=== PATIENT | male | born 1990 | race African-American/Black ===

== ENCOUNTER 2018-12-31 04:12 | Emergency (ER) | payer SELFPAY ==
[2018-12-31 04:49] LABS: Absolute Lymphocytes (CBC) 3.3 K/uL (0.7-4.9); Absolute Monocytes 0.6 K/uL (0.1-1.3); Absolute Neutrophil 5.4 K/uL (1.8-8.0); Basophils % 0.5 % (0-1.3); Eosinophils % 0.5 % (0-4.4); Hematocrit 41.2 % (39.6-49.0); Lymphocytes % 35.6 % (15.3-44.8); MPV 9.3 fL (7.6-11.3); RBC Red Blood Cell Count 4.89 M/uL (4.33-5.43)
[2018-12-31 04:53] LABS: Protime INR 1.13
[2018-12-31 04:58] LABS: Barbiturates NEGATIVE (NEGATIVE); Benzodiazepines NEGATIVE (NEGATIVE); Cocaine NEGATIVE (NEGATIVE); METHAMPHETAM NEGATIVE (NEGATIVE); Methadone NEGATIVE (NEGATIVE); Opiates NEGATIVE (NEGATIVE); Phencyclidine NEGATIVE (NEGATIVE); THC Cannibis NEGATIVE (NEGATIVE)
[2018-12-31 05:27] LABS: ALT/SGPT 19 U/L (12-78); AST/SGOT 16 U/L (15-37); Albumin 3.9 g/dL (3.4-5.0); Alkaline Phosphatase 69 U/L (45-117); BUN Blood Urea Nitrogen 9 mg/dL (7-18); Bicarbonate 26 mmol/L (21-32); Bilirubin Direct < 0.1 mg/dL (0-0.2); Bilirubin Total 0.2 mg/dL (0.2-1.0); Glucose Level 106 mg/dL (74-106); Potassium 3.6 mmol/L (3.5-5.1); Protein, Total 7.3 g/dL (6.4-8.2); Sodium Level 143 mmol/L (136-145)
[2018-12-31 06:00] LABS: Urine Blood 2+ (NEG); Urine Glucose NEGATIVE (NEG); Urine Protein 1+ (NEG); Urine Specific Gravity 1.025 (1.005-1.030)
--- NOTE | 2018-12-31 08:00 | EDPHYS ---
Physician Documentation [facility] Name: Jamsion Cardozo Age: 28 yrs Sex: Male : 1990 Arrival Date: 12/31/2018 Time: 04:18 Bed 3 Private MD: ED Physician Yang Carey HPI: 12/31 04:25 This 28 yrs old Black Male presents to ER via EMS with complaints of ETOH Abuse. kdr 04:25 The patient was out drinking tonight and a short time ago, his girl friend was called [facility] to come pick him up. He was poorly responsive at that time and vomiting one or more times. He then passed out completely and she called EMS. The patient normally drinks on weekends but not to this extent. The girl friend does not think he was taking any other street drugs. Onset: The symptoms/episode began/occurred just prior to arrival, today. Severity of symptoms: At their worst the symptoms were moderate severe incapacitating just prior to arrival, in the emergency department the symptoms are unchanged. The patient has not experienced similar symptoms in the past. The patient has not recently seen a physician. Historical: - Allergies: 04:25 No Known Allergies; fc - Home Meds: 04:25 None [Active]; fc - PMHx: 04:25 None; fc - PSHx: 04:25 None; fc - Immunization history:: Last tetanus immunization: unknown. - Social history:: Smoking status: Patient uses tobacco products, smokes one pack cigarettes per day. Patient uses alcohol, on the weekends. - Ebola Screening: : Patient negative for fever greater than or equal to 101.5 degrees Fahrenheit, and additional compatible Ebola Virus Disease symptoms Patient denies exposure to infectious person Patient denies travel to an Ebola-affected area in the 21 days before illness onset. ROS: 04:25 Constitutional: Unable to obtain as patient is unresponsive kdr Exam: 04:25 Constitutional: This is a well developed, well nourished patient who is obtunded and kdr poorly responsive to pain Head/Face: Normocephalic, atraumatic. Eyes: Pupils equal round and reactive to light, extra-ocular motions intact. Lids and lashes normal. Conjunctiva and sclera are non-icteric and not injected. Cornea within normal limits. Periorbital areas with no swelling, redness, or edema. Neck: Trachea midline, no thyromegaly or masses palpated, and no cervical lymphadenopathy. Supple, full range of motion without nuchal rigidity, or vertebral point tenderness. No Meningismus. Chest/axilla: Normal chest wall appearance and motion. Nontender with no deformity. No lesions are appreciated. Cardiovascular: Regular rate and rhythm with a normal S1 and S2. No gallops, murmurs, or rubs. Normal PMI, no JVD. No pulse deficits. Respiratory: Lungs have equal breath sounds bilaterally, clear to auscultation and percussion. No rales, rhonchi or wheezes noted. No increased work of breathing, no retractions or nasal flaring. Abdomen/GI: Soft, non-tender, with normal bowel sounds. No distension or tympany. No guarding or rebound. No evidence of tenderness throughout. Back: No spinal tenderness. No costovertebral tenderness. Full range of motion. Skin: Warm, dry with normal turgor. Normal color with no rashes, no lesions, and no evidence of cellulitis. MS/ Extremity: Pulses equal, no cyanosis. Neurovascular intact. Full, normal range of motion. 04:25 Neuro: Unresponsive. Vital Signs: 04:10 BP 130 / 86; Pulse 75; Resp 14; Temp 96.7(A); Pulse Ox 100% on R/A; Weight 90.72 kg fc (R); Height 5 ft. 11 in. (180.34 cm) (R); Pain 0/10; 05:30 BP 117 / 64; Pulse 73; Resp 14; Temp 97.0(A); Pulse Ox 98% on R/A; Pain 0/10; aa1 06:39 BP 93 / 58; Pulse 76; Resp 14; Pulse Ox 99% on R/A; Pain 0/10; aa1 07:04 BP 107 / 66; Pulse 74; Resp 14; Pulse Ox 100% on R/A; Pain 0/10; aa1 07:51 BP 107 / 59; Pulse 74; Resp 18; Pulse Ox 100% on R/A; hj 04:10 Body Mass Index 27.89 (90.72 kg, 180.34 cm) MDM: 04:25 Data reviewed: vital signs, nurses notes, lab test result(s), radiologic studies. ED kdr course: The patient had received Thiamine and Zofran [place] by EMS. 07:36 Patient medically screened. [facility] 12/31 04:20 Order name: Acetaminophen; Complete Time: 06:11 kdr 12/31 04:20 Order name: Basic Metabolic Panel; Complete Time: 06:11 kdr 12/31 04:20 Order name: CBC with Diff; Complete Time: 05:04 kdr 12/31 04:20 Order name: ETOH Level; Complete Time: 05:23 [facility] 12/31 04:20 Order name: Hepatic Function; Complete Time: 06:11 kdr 12/31 04:20 Order name: PT-INR; Complete Time: 05:23 kdr 12/31 04:20 Order name: Ptt, Activated; Complete Time: 05: kdr 12/31 04:20 Order name: Salicylate; Complete Time: : kdr 12/31 04:20 Order name: Urine Drug Screen; Complete Time: 05:04 kdr 12/31 04:20 Order name: EKG; Complete Time: 04:21 kdr 12/31 04:20 Order name: EKG - Nurse/Tech; Complete Time: 05:48 [facility] 12/31 04:20 Order name: CT Head Brain wo Cont [facility] 12/31 04:42 Order name: Urine Dipstick--Ancillary (enter results); Complete Time: 06:11 cm6 12/31 06:21 Order name: ETOH Level [facility] 12/31 04:20 Order name: IV Saline Lock; Complete Time: 04:24 kdr 12/31 04:20 Order name: Labs collected and sent; Complete Time: 04:24 [facility] 12/31 04:20 Order name: Urine Dipstick-Ancillary (obtain specimen); Complete Time: 04:35 kdr Administered Medications: No medications were administered Disposition: 12/31/18 07:59 Discharged to Home. Impression: Alcohol abuse with intoxication. - Condition is Stable. - Discharge Instructions: Alcohol Intoxication, Alcohol Intoxication, [id number], Alcohol Abuse and Nutrition, What You Need to Know About Alcohol Abuse and Dependence, Youth. - Medication Reconciliation Form, Thank You Letter, Antibiotic Education, Prescription Opioid Use form. - Follow up: Private Physician; When: 2 - 3 days; Reason: Recheck today's complaints, Continuance of care, Re-evaluation by your physician. - Problem is new. - Symptoms have improved. Signatures: Dispatcher [employer] EDYang Pastor MD MD cha Rittger, Ronald, MD MD kdr Chretien, Shauna, RN RN Shin Kimball RN RN Corrections: (The following items were deleted from the chart) 08:19 07:59 12/31/2018 07:59 Discharged to Home. Impression: Alcohol abuse with intoxication. hj Condition is Stable. Forms are Medication Reconciliation Form, Thank You Letter, Antibiotic Education, Prescription Opioid Use. Follow up: Private Physician; When: 2 - 3 days; Reason: Recheck today's complaints, Continuance of care, Re-evaluation by your physician. Problem is new. Symptoms have improved. ceci
--- NOTE | 2018-12-31 08:00 | ER ---
Nurse's Notes [facility] Name: Jamison Cardozo Age: 28 yrs Sex: Male : 1990 Arrival Date: 12/31/2018 Time: 04:18 Bed 3 Private MD: Diagnosis: Alcohol abuse with intoxication Presentation: 12/31 04:10 Presenting complaint: EMS states: that pt went out drinking with family and they called fc girlfriend to pick him up. She had to help him up the stairs. Pt then passed out. Did vomit a small amt. Pt then became unresponsive so she called 911. 04:21 Transition of care: patient was not received from another setting of care. Onset of fc symptoms was December 31, 2018 at 03:30. Risk Assessment: Do you want to hurt yourself or someone else? Patient reports no desire to harm self or others. Initial Sepsis Screen: Does the patient meet any 2 criteria? No. Patient's initial sepsis screen is negative. Does the patient have a suspected source of infection? No. Patient's initial sepsis screen is negative. Care prior to arrival: Medication(s) given: Normal saline infusion, 500 mL, zofran 4 mg, Thiamine 200 mg. 04:21 Method Of Arrival: EMS: [facility] 04:21 Acuity: MARNI 2 fc Historical: - Allergies: 04:25 No Known Allergies; fc - Home Meds: 04:25 None [Active]; fc - PMHx: 04:25 None; fc - PSHx: 04:25 None; fc - Immunization history:: Last tetanus immunization: unknown. - Social history:: Smoking status: Patient uses tobacco products, smokes one pack cigarettes per day. Patient uses alcohol, on the weekends. - Ebola Screening: : Patient negative for fever greater than or equal to 101.5 degrees Fahrenheit, and additional compatible Ebola Virus Disease symptoms Patient denies exposure to infectious person Patient denies travel to an Ebola-affected area in the 21 days before illness onset. Screenin:19 Abuse screen: Denies threats or abuse. Denies injuries from another. Nutritional aa1 screening: No deficits noted. Tuberculosis screening: No symptoms or risk factors identified. Fall Risk None identified. Assessment: 04:19 General: Appears in no apparent distress. comfortable, Behavior is drowsy, Smells of aa1 alcohol. Pain: Unable to use pain scale. FLACC scale score is 0 out of 10. Patient is unresponsive. Neuro: Level of Consciousness is obtunded, will briefly open eyes and move extremities then goes back to sleep. Cardiovascular: Heart tones S1 S2 present Rhythm is regular. Respiratory: Airway is patent Respiratory effort is even, unlabored, Respiratory pattern is regular, symmetrical. GI: No signs and/or symptoms were reported involving the gastrointestinal system. : No signs and/or symptoms were reported regarding the genitourinary system. EENT: No signs and/or symptoms were reported regarding the EENT system. Derm: Skin is intact, is healthy with good turgor, Skin is pink, warm \T\ dry. Musculoskeletal: Circulation, motion, and sensation intact. Capillary refill < 3 seconds. 05:46 Reassessment: Patient appears in no apparent distress at this time. No changes from aa1 previously documented assessment. Patient and/or family updated on plan of care and expected duration. Pain level reassessed. Pt still resting quietly, eyes closed. Significant other at bedside. Awaiting CT results. Will continue to monitor. 06:39 Reassessment: Patient appears in no apparent distress at this time. No changes from aa1 previously documented assessment. Patient and/or family updated on plan of care and expected duration. Pain level reassessed. Still monitoring pt for appropriateness for discharge. 07:00 General: Appears in no apparent distress. comfortable, Behavior is drowsy, quiet, hj Smells of alcohol. Pain: Unable to use pain scale. FLACC scale score is 2 out of 10. Neuro: Level of Consciousness is lethargic. Cardiovascular: Heart tones S1 S2 present Rhythm is regular. Respiratory: Airway is patent Respiratory effort is even, unlabored, Respiratory pattern is regular, symmetrical. GI: No signs and/or symptoms were reported involving the gastrointestinal system. : No signs and/or symptoms were reported regarding the genitourinary system. EENT: No signs and/or symptoms were reported regarding the EENT system. Derm: Skin is intact, is healthy with good turgor, Skin is pink, warm \T\ dry. Musculoskeletal: Circulation, motion, and sensation intact. Capillary refill < 3 seconds. 07:51 Reassessment: No changes from previously documented assessment. Patient and/or family hj updated on plan of care and expected duration. Pain level reassessed. GF at bedside. Vital Signs: 04:10 BP 130 / 86; Pulse 75; Resp 14; Temp 96.7(A); Pulse Ox 100% on R/A; Weight 90.72 kg fc (R); Height 5 ft. 11 in. (180.34 cm) (R); Pain 0/10; 05:30 BP 117 / 64; Pulse 73; Resp 14; Temp 97.0(A); Pulse Ox 98% on R/A; Pain 0/10; aa1 06:39 BP 93 / 58; Pulse 76; Resp 14; Pulse Ox 99% on R/A; Pain 0/10; aa1 07:04 BP 107 / 66; Pulse 74; Resp 14; Pulse Ox 100% on R/A; Pain 0/10; aa1 07:51 BP 107 / 59; Pulse 74; Resp 18; Pulse Ox 100% on R/A; hj 04:10 Body Mass Index 27.89 (90.72 kg, 180.34 cm) ED Course: 04:10 Arm band placed on Patient placed in an exam room, on a stretcher. fc 04:18 Patient arrived in ED. aa1 04:19 Ronald Cam MD is Attending Physician. kdr 04:19 Patient has correct armband on for positive identification. Placed in gown. Bed in low aa1 position. Side rails up X2. lunchroom monitor on. Pulse ox on. NIBP on. Warm blanket given. 04:19 Maintain EMS IV. Dressing intact. Good blood return noted. Site clean \T\ dry. Gauge \T\ aa 1 site: 18g LAC. 04:24 Triage completed. fc 04:24 Maddi Casiano, RN is Primary Nurse. aa1 04:36 Straight cath inserted, using sterile technique, 16 Fr. Specimen obtained. Returned ed1 clear yellow urine. Patient tolerated well. 05:08 CT Head Brain wo Cont In Process Unspecified. EDMS 07:00 Report given to Shin Kimball RN. aa1 07:18 Shin Kimball, NAYA is Primary Nurse. hj 07:36 Attending Physician role handed off by Ronald Cam MD ceci 07:36 Yang Carey MD is Attending Physician. ceci 08:16 No provider procedures requiring assistance completed. IV discontinued, intact, hj bleeding controlled, No redness/swelling at site. Pressure dressing applied. Administered Medications: No medications were administered Outcome: 07:59 Discharge ordered by . ceci 08:18 Discharged to home ambulatory, with family. deandre 08:18 Condition: stable 08:18 Discharge instructions given to patient, family, Instructed on discharge instructions, follow up and referral plans. Demonstrated understanding of instructions, follow-up care. 08:19 Patient left the ED. deandre Signatures: Dispatcher [employer] EDMaddi Dunn RN RN aa1 Yang Carey MD MD cha Rittger, Kevin, MD MD kdr Chretien, Felicia RN RN Luzma Batres RN RN ed1 Shin Kimball RN RN Corrections: (The following items were deleted from the chart) 04:24 04:21 Presenting complaint: EMS states: that pt went out drinking with family and they fc called girlfriend to pick him up. She had to help him up the stairs. Pt then passed out. Did vomit a small amt. Pt then became unresponsive so she called 911. fc
--- NOTE | 2018-12-31 08:46 | EKG ---
Test Date: 2018-12-31 Test Time: 05:19:40 Gis Manager: CHARITO MEASUREMENT RESULTS: Intervals: Rate: 74 FL: 188 QRSD: 92 QT: 392 QTc: 435 [place]: P: 87 FL: 188 QRS: 87 T: 51 INTERPRETIVE STATEMENTS: Normal sinus rhythm Possible Left atrial enlargement early repol Abnormal ECG No previous ECG available for comparison Electronically Signed On 12-31-18 08:45:54 CDT by Eugene Garcia
--- NOTE | 2019-01-01 10:08 | RAD REPORT ---
EXAM DESCRIPTION: CT - Head Brain Wo Cont - 12/31/2018 5:22 am CLINICAL HISTORY: The patient is 28 years old and is Male; AMS;Declining state TECHNIQUE: Axial computed tomography images of the head/brain without intravenous contrast. Sagitt al and coronal reformatted images were created and reviewed. This CT exam was performed using one o r more of the following dose reduction techniques: automated exposure control, adjustment of the mA and/or kV according to patient size, and/or use of iterative reconstruction technique. COMPARISON: No relevant prior studies available. FINDINGS: BRAIN: Unremarkable. The suazo-white matter differentiation is preserved . No hemorrhag e. No significant white matter disease. No edema. No extra-axial fluid collections. VENTRICLES: Unremarkable. No ventriculomegaly. BONES/JOINTS: No acute fracture. SOFT TISSUES: Unremarkable. SINUSES: Unremarkable as visualized. No acute sinusitis. MASTOID AIR CELLS: Unremarkable as visualized. No mastoid effusion. IMPRESSION: No acute intracranial findings. Electronically signed by: Manisha Singh MD 12/31/2018 5:17 AM CDT Due to temporary technical issues with the PACS/Fluency reporting system, reports are being signed by the in house radiologist as a courtesy to ensure prompt reporting. The interpreting radiologist is f ully responsible for the content of the report.
== END 2018-12-31 08:19 | disposition home or self-care (01) ==
LOC: ER 04:12
DX: F10.129 Alcohol abuse with intoxication, unspecified (principal); F17.210 Nicotine dependence, cigarettes, uncomplicated
CPT/HCPCS: 36415; 51702; 70450; 80048; 80076; 80307; 80320; 80329; 81003; 85025; 85610; 85730; 93005; 99284

== ENCOUNTER 2019-02-14 06:55 | Emergency (ER) | payer SELFPAY ==
[2019-02-14] MEDS ORDERED: KETOROLAC 30 MG/ML INJ ONE (08:11)
[2019-02-14] MEDS ORDERED: NA CHLORIDE 0.9% 500 ML ONE (08:11)
[2019-02-14 08:20] LABS: Absolute Lymphocytes (CBC) 2.7 K/uL (0.7-4.9); Basophils % 0.5 % (0-1.3); Eosinophils % 1.1 % (0-4.4); Hematocrit 41.1 % (39.6-49.0); Monocytes % 8.2 % (3.3-12.3); RBC Red Blood Cell Count 4.89 M/uL (4.33-5.43)
[2019-02-14 08:29] LABS: Potassium 3.9 mmol/L (3.5-5.1)
--- NOTE | 2019-02-14 09:26 | RAD REPORT ---
EXAM DESCRIPTION: CTAbdomen Pelvis W Contrast - 02/14/2019 9:07 am CLINICAL HISTORY: Abdominal pain. Rectal pain COMPARISON: No comparisons TECHNIQUE: Biphasic CT imaging of the abdomen and pelvis was performed with 100 ml non-ionic IV cont rast. All CT scans are performed using dose optimization technique as appropriate and may include automated exposure control or mA/KV adjustment according to patient size. FINDINGS: The lung bases are clear. The liver, spleen, pancreas, adrenal glands and kidneys are within normal limits. No bowel obstruction, free air, free fluid or abscess. The appendix is normal. No evidence of signi ficant lymphadenopathy. No suspicious bony findings. IMPRESSION: No acute intra-abdominal or pelvic finding.
--- NOTE | 2019-02-14 09:50 | ER ---
Nurse's Notes [facility] Name: Jamison Cardozo Age: 28 yrs Sex: Male : 1990 Arrival Date: 02/14/2019 Time: 07:01 Bed 5 Private MD: Diagnosis: Ivelisse-rectal abscess - I\T\D Presentation: 02/14 07:10 Presenting complaint: Patient states: I think I have a spider bite on my buttock area. ed1 Transition of care: patient was not received from another setting of care. Onset of symptoms was February 13, 2019. Risk Assessment: Do you want to hurt yourself or someone else? Patient reports no desire to harm self or others. Initial Sepsis Screen: Does the patient meet any 2 criteria? No. Patient's initial sepsis screen is negative. Does the patient have a suspected source of infection? No. Patient's initial sepsis screen is negative. Care prior to arrival: None. 07:10 Method Of Arrival: Ambulatory ed1 07:10 Acuity: MARNI 3 ed1 Triage Assessment: 07:11 Bite description: bite sustained to buttocks by a spider, animal information: ed1 vaccination(s) is not applicable. General: Appears in no apparent distress. Behavior is calm, cooperative. Pain: Complains of pain in buttocks Pain currently is 8 out of 10 on a pain scale. Historical: - Allergies: 07:11 No Known Allergies; ed1 - Home Meds: 07:11 None [Active]; ed1 - PMHx: 07:11 None; ed1 - PSHx: 07:11 None; ed1 - Immunization history:: Adult Immunizations up to date. - Social history:: Smoking status: Patient uses tobacco products, denies chronic smoking, but will smoke occasionally. - Ebola Screening: : Patient negative for fever greater than or equal to 101.5 degrees Fahrenheit, and additional compatible Ebola Virus Disease symptoms Patient denies exposure to infectious person Patient denies travel to an Ebola-affected area in the 21 days before illness onset No symptoms or risks identified at this time. Screenin:21 Abuse screen: Denies threats or abuse. Nutritional screening: No deficits noted. tr5 Tuberculosis screening: No symptoms or risk factors identified. Fall Risk No fall in past 12 months (0 pts). No secondary diagnosis (0 pts). IV access (20 points). Ambulatory Aid- None/Bed Rest/Nurse Assist (0 pts). Gait- Normal/Bed Rest/Wheelchair (0 pts) Mental Status- Oriented to own ability (0 pts). Total Gonzalez Fall Scale indicates No Risk (0-24 pts). Assessment: 08:16 General: Appears in no apparent distress. Behavior is calm, cooperative, appropriate tr5 for age, Denies fever, fatigue, chills. Pain: Complains of pain in coccyx Pain does not radiate. Pain currently is 8 out of 10 on a pain scale. Quality of pain is described as burning, tender, Is intermittent, Alleviated by rest, relaxation, Aggravated by repositioning, Also complains of no other associated symptoms. Neuro: Level of Consciousness is awake, alert, obeys commands, Oriented to person, place, time, situation, Account Executive Trainee are equal bilaterally Moves all extremities. Speech is normal, Denies weakness blurred vision dizziness. Cardiovascular: Denies chest pain, Heart tones present Bruits absent Capillary refill < 3 seconds Pulses are all present. Edema is absent. Respiratory: Airway is patent Trachea midline Respiratory effort is even, unlabored, Respiratory pattern is regular, symmetrical, Breath sounds are clear bilaterally. Denies shortness of breath. GI: No signs and/or symptoms were reported involving the gastrointestinal system. : No signs and/or symptoms were reported regarding the genitourinary system. EENT: No signs and/or symptoms were reported regarding the EENT system. Derm: Skin is intact, Skin is dry, Skin is pink, warm \T\ dry. Skin temperature is warm. Musculoskeletal: Capillary refill < 3 seconds, Range of motion: intact in all extremities. 10:21 Reassessment: Conscious sedation started with Dr Cam and Dr Schumacher at the bedside, sv see conscious sedation paperwork. 11:00 Reassessment: Patient appears in no apparent distress at this time. Patient and/or sv family updated on plan of care and expected duration. Pain level reassessed. Patient is alert, oriented x 3, equal unlabored respirations, skin warm/dry/pink. Patient states symptoms have improved. 12:30 Reassessment: Patient and/or family updated on plan of care and expected duration. Pain tr5 level reassessed. Patient denies pain at this time. Patient states symptoms have improved. Vital Signs: 07:11 BP 158 / 89; Pulse 78; Resp 17; Temp 99.8; Pulse Ox 100% on R/A; Weight 79.38 kg (R); ed1 Height 6 ft. 3 in. (190.50 cm) (R); Pain 8/10; 08:15 BP 138 / 83; Pulse 68; Resp 15; Pulse Ox 100% on R/A; tr5 10:15 BP 130 / 83; Pulse 64; Resp 16; Temp 97.5; Pulse Ox 100% on R/A; sv 10:30 BP 123 / 74; Pulse 71; Resp 18; Pulse Ox 98% on R/A; sv 10:45 BP 123 / 75; Pulse 61; Resp 13; Pulse Ox 99% on R/A; sv 11:00 BP 121 / 80; Pulse 64; Resp 16; Pulse Ox 100% on R/A; sv 11:15 Pain 0/10; sv 11:21 BP 125 / 83; Pulse 85; Resp 16; Pulse Ox 100% on R/A; tr5 12:07 BP 128 / 83; Pulse 53; Resp 17; Pulse Ox 100% on R/A; tr5 07:11 Body Mass Index 21.87 (79.38 kg, 190.50 cm) ed1 ED Course: 07:01 Patient arrived in ED. am2 07:11 Triage completed. ed1 07:11 Arm band placed on right wrist. ed1 07:12 Ronald Cam MD is Attending Physician. kdr 07:54 Krishna Vilchis, NAYA is Primary Nurse. sv 08:14 Inserted saline lock: 20 gauge in right antecubital area, using aseptic technique. tr5 09:07 CT Abd/Pelvis - IV Contrast Only In Process Unspecified. EDMS 09:48 Yenniefr Silva MD is Hospitalizing Provider. kdr 10:10 Consent for conscious sedation explained by staff, explained by physician, signed by sv patient, Surgical consent explained by staff, explained by physician, signed by patient. 12:30 Assist provider with I \T\ D: of an abscess on perirectal area. IV discontinued. tr5 12:31 Patient has correct armband on for positive identification. tr5 Administered Medications: 08:12 Drug: NS 0.9% 500 ml Route: IV; Rate: bolus; Site: right antecubital; tr5 11:20 Follow up: IV Status: Completed infusion tr5 08:13 Drug: TORadol - Ketorolac 15 mg Route: IVP; Site: right antecubital; tr5 11:20 Follow up: Response: No adverse reaction; Pain is decreased tr5 10:21 Drug: fentaNYL (PF) 50 mcg {Note: given by Dr Cam.} Route: IVP; Site: right sv antecubital; 11:15 Follow up: Pain 0/10 Adult; Response: No adverse reaction; Pain is decreased sv 11:20 Follow up: Response: No adverse reaction; Pain is decreased tr5 10:22 Drug: Propofol 100 mg {Note: given by Dr Cam.} Route: IVP; Site: right antecubital; sv 11:15 Follow up: Response: No adverse reaction sv 11:19 Follow up: Response: No adverse reaction tr5 10:26 Drug: Propofol 50 mg {Note: given by Dr Cam.} Route: IVP; Site: right antecubital; sv 11:15 Follow up: Response: No adverse reaction sv 11:19 Follow up: Response: No adverse reaction; Anxiety decreased tr5 Outcome: 09:50 Decision to Hospitalize by Provider. kdr 10:38 Discharge ordered by . kdr 12:30 Discharged to home ambulatory. tr5 12:30 Condition: stable 12:30 Discharge instructions given to patient, Instructed on discharge instructions, follow up and referral plans. medication usage, wound care, Demonstrated understanding of instructions, follow-up care, medications, wound care, Prescriptions given X 3. 12:31 Patient left the ED. tr5 Signatures: Dispatcher [employer] Ashley Ramirez RN NAYA Ronald Cam MD MD kdr Riggs, Erika, RN RN ed1 Olga Akins Tommie RN RN tr5 Corrections: (The following items were deleted from the chart) 11:13 10:15 BP 130 / 83; Pulse 64bpm; Resp 16bpm; Pulse Ox 100% RA; sv sv
--- NOTE | 2019-02-14 09:51 | EDPHYS ---
Physician Documentation [facility] Name: Jamison Cardozo Age: 28 yrs Sex: Male : 1990 Arrival Date: 02/14/2019 Time: 07:01 Bed 5 Private MD: ED Physician Ronald Cam HPI: 02/14 07:56 This 28 yrs old Black Male presents to ER via Ambulatory with complaints of Insect kdr Bite, chills. 07:56 The patient states that since last night he has had subjective fever and chills. kdr 09:08 Onset: The symptoms/episode began/occurred last night. Severity of symptoms: At their kdr worst the symptoms were mild in the emergency department the symptoms are unchanged. The patient has not experienced similar symptoms in the past. The patient has not recently seen a physician. The patient thinks he may have been bitten by a spider. C/o fever and chills since last night and pain on his buttocks. Historical: - Allergies: 07:11 No Known Allergies; ed1 - Home Meds: 07:11 None [Active]; ed1 - PMHx: 07:11 None; ed1 - PSHx: 07:11 None; ed1 - Immunization history:: Adult Immunizations up to date. - Social history:: Smoking status: Patient uses tobacco products, denies chronic smoking, but will smoke occasionally. - Ebola Screening: : Patient negative for fever greater than or equal to 101.5 degrees Fahrenheit, and additional compatible Ebola Virus Disease symptoms Patient denies exposure to infectious person Patient denies travel to an Ebola-affected area in the 21 days before illness onset No symptoms or risks identified at this time. ROS: 09:08 Constitutional: Negative for objective fever and weight loss - did have subjective kdr fever and shills last night Eyes: Negative for injury, pain, redness, and discharge, ENT: Negative for injury, pain, and discharge, Neck: Negative for injury, pain, and swelling, Cardiovascular: Negative for chest pain, palpitations, and edema, Respiratory: Negative for shortness of breath, cough, wheezing, and pleuritic chest pain, Back: Negative for injury and pain, : Negative for injury, bleeding, discharge, and swelling, MS/Extremity: Negative for injury and deformity, Skin: Negative for injury, rash, and discoloration, Neuro: Negative for headache, weakness, numbness, tingling, and seizure activity. Psych: Negative for depression, anxiety, suicide ideation, homicidal ideation, and hallucinations, Allergy/Immunology: Negative for hives, rash, and allergies, Endocrine: Negative for neck swelling, polydipsia, polyuria, polyphagia, and marked weight changes, Hematologic/Lymphatic: Negative for swollen nodes, abnormal bleeding, and unusual bruising. 09:08 Abdomen/GI: Positive for rectal pain, Negative for nausea, vomiting, and diarrhea, constipation, abdominal cramps, abdominal distension, anorexia, dysphagia, hematemesis, black/tarry stool. Exam: 09:08 Constitutional: This is a well developed, well nourished patient who is awake, alert, kdr and in no acute distress. Head/Face: Normocephalic, atraumatic. Eyes: Pupils equal round and reactive to light, extra-ocular motions intact. Lids and lashes normal. Conjunctiva and sclera are non-icteric and not injected. Cornea within normal limits. Periorbital areas with no swelling, redness, or edema. Neck: Trachea midline, no thyromegaly or masses palpated, and no cervical lymphadenopathy. Supple, full range of motion without nuchal rigidity, or vertebral point tenderness. No Meningismus. Chest/axilla: Normal chest wall appearance and motion. Nontender with no deformity. No lesions are appreciated. Cardiovascular: Regular rate and rhythm with a normal S1 and S2. No gallops, murmurs, or rubs. Normal PMI, no JVD. No pulse deficits. Respiratory: Lungs have equal breath sounds bilaterally, clear to auscultation and percussion. No rales, rhonchi or wheezes noted. No increased work of breathing, no retractions or nasal flaring. Back: No spinal tenderness. No costovertebral tenderness. Full range of motion. Skin: Warm, dry with normal turgor. Normal color with no rashes, no lesions, and no evidence of cellulitis. MS/ Extremity: Pulses equal, no cyanosis. Neurovascular intact. Full, normal range of motion. Neuro: Awake and alert, GCS 15, oriented to person, place, time, and situation. Cranial nerves II-XII grossly intact. Motor strength 5/5 in all extremities. Sensory grossly intact. Cerebellar exam normal. Normal gait. Psych: Awake, alert, with orientation to person, place and time. Behavior, mood, and affect are within normal limits. 09:08 Abdomen/GI: Inspection: abdomen appears normal, Bowel sounds: normal, Palpation: abdomen is soft and non-tender, Rectal exam: mass, that is moderate-sized, with tenderness, swelling, that is mild, tenderness, that is mild, the exam is deferred. Vital Signs: 07:11 BP 158 / 89; Pulse 78; Resp 17; Temp 99.8; Pulse Ox 100% on R/A; Weight 79.38 kg (R); ed1 Height 6 ft. 3 in. (190.50 cm) (R); Pain 8/10; 08:15 BP 138 / 83; Pulse 68; Resp 15; Pulse Ox 100% on R/A; tr5 10:15 BP 130 / 83; Pulse 64; Resp 16; Temp 97.5; Pulse Ox 100% on R/A; sv 10:30 BP 123 / 74; Pulse 71; Resp 18; Pulse Ox 98% on R/A; sv 10:45 BP 123 / 75; Pulse 61; Resp 13; Pulse Ox 99% on R/A; sv 11:00 BP 121 / 80; Pulse 64; Resp 16; Pulse Ox 100% on R/A; sv 11:15 Pain 0/10; sv 11:21 BP 125 / 83; Pulse 85; Resp 16; Pulse Ox 100% on R/A; tr5 12:07 BP 128 / 83; Pulse 53; Resp 17; Pulse Ox 100% on R/A; tr5 07:11 Body Mass Index 21.87 (79.38 kg, 190.50 cm) ed1 Procedures: 10:46 Moderate sedation: Pre-procedure assessment: the patient has been NPO an unknown amount kdr of time prior to arrival, ASA physical classification: I - healthy, no underlying organic disease, Airway assessment: able to hyperextend neck, Mallampati classification of tongue size: I - faucial pillars, soft palate, and uvula can be fully visualized, Monitoring during procedure: court recording monitor, continuous pulse oximetry, nurse at bedside at all times, Medications employed: Fentanyl, 50 mcg(s), Propofol 150 mcg. MDM: 09:50 Patient medically screened. kdr 09:52 Data reviewed: vital signs, nurses notes, lab test result(s), radiologic studies. kdr Counseling: I had a detailed discussion with the patient and/or guardian regarding: the historical points, exam findings, and any diagnostic results supporting the discharge/admit diagnosis, lab results, radiology results, the need for further work-up and treatment in the hospital. 02/14 07:49 Order name: CBC with Diff; Complete Time: 09:40 kdr 02/14 07:49 Order name: Chem 7; Complete Time: 09:40 [facility] 02/14 07:49 Order name: Blood Culture Adult (2) [facility] 02/14 07:49 Order name: CT Abd/Pelvis - IV Contrast Only; Complete Time: 09:40 kdr 02/14 10:57 Order name: Anaerobic Culture EDMS 02/14 10:57 Order name: Wound Culture EDMS Administered Medications: 08:12 Drug: NS 0.9% 500 ml Route: IV; Rate: bolus; Site: right antecubital; tr5 11:20 Follow up: IV Status: Completed infusion tr5 08:13 Drug: TORadol - Ketorolac 15 mg Route: IVP; Site: right antecubital; tr5 11:20 Follow up: Response: No adverse reaction; Pain is decreased tr5 10:21 Drug: fentaNYL (PF) 50 mcg {Note: given by Dr Cam.} Route: IVP; Site: right sv antecubital; 11:15 Follow up: Pain 0/10 Adult; Response: No adverse reaction; Pain is decreased sv 11:20 Follow up: Response: No adverse reaction; Pain is decreased tr5 10:22 Drug: Propofol 100 mg {Note: given by Dr Cam.} Route: IVP; Site: right antecubital; sv 11:15 Follow up: Response: No adverse reaction sv 11:19 Follow up: Response: No adverse reaction tr5 10:26 Drug: Propofol 50 mg {Note: given by Dr Cam.} Route: IVP; Site: right antecubital; sv 11:15 Follow up: Response: No adverse reaction sv 11:19 Follow up: Response: No adverse reaction; Anxiety decreased tr5 Disposition: 02/14/19 10:38 Discharged to Home. Impression: Ivleisse-rectal abscess - I\T\D. - Condition is Stable. - Discharge Instructions: Perirectal Abscess, Moderate Conscious Sedation, Adult, Care After. - Prescriptions for Flagyl 500 mg Oral Tablet - take 1 tablet by ORAL route every 6 hours for 7 days; 28 tablet. Tylenol- Codeine #3 300-30 mg Oral Tablet - take 2 tablets by ORAL route every 6 hours As needed Take one or two every four to six hours as needed for pain; 12 tablet. Cipro 500 mg Oral Tablet - take 1 tablet by ORAL route every 12 hours for 7 days; 14 tablet. - Medication Reconciliation Form, Thank You Letter, Antibiotic Education, Prescription Opioid Use form. - Follow up: Private Physician; When: 2 - 3 days; Reason: If symptoms return, Further diagnostic work-up, Recheck today's complaints, Continuance of care, Re-evaluation by your physician. - Problem is new. - Symptoms have improved. - Notes: Follow up with Dr Schumacher in 2 weeks in his office. You may call and make an appointment sometime this week to have one of Dr Schumacher's staff show a family member how to pack the wound. Critical care time excluding procedures: 10:46 Critical care time: Bedside Care: 30 minutes, Consultation: 5 minutes, Family kdr Intervention: 10 minutes. Total time: 45 minutes Signatures: Dispatcher [employer] EDAshley Melgoza RN RN sv Ronald Cam MD MD kdr Luzma Batres RN RN ed1 Krishna Vilchis RN RN tr5 Corrections: (The following items were deleted from the chart) 10:37 09:50 Hospitalization Ordered by Yennifer Silva MD for Observation. Preliminary diagnosis kdr is Ivelisse- rectal abscess. Bed requested for Telemetry/MedSurg (observation). Status is Observation. Condition is Fair. Problem is new. Symptoms are unchanged. UTI on Admission? No. kdr 12:31 10:38 02/14/2019 10:38 Discharged to Home. Impression: Ivelisse-rectal abscess - I\T\D. tr5 Condition is Stable. Forms are Medication Reconciliation Form, Thank You Letter, Antibiotic Education, Prescription Opioid Use. Follow up: Private Physician; When: 2 - 3 days; Reason: If symptoms return, Further diagnostic work-up, Recheck today's complaints, Continuance of care, Re-evaluation by your physician. Problem is new. Symptoms have improved. kdr
[2019-02-14] MEDS ORDERED: LIDOCAINE 1% W/EPI 1:100,000 MDV 50 ML VIAL ONE (10:18)
[2019-02-14] MEDS ORDERED: NA CHLORIDE 0.9% 250 ML ONE (10:26)
[2019-02-14] MEDS ORDERED: PROPOFOL 200 MG/20 ML VIAL IV ONE (10:26)
--- NOTE | 2019-02-14 10:32 | P.OP ---
Preoperative diagnosis: Perianal Abscess Postoperative diagnosis: Perianal Abscess Primary procedure: Incision and Drainage of Perianal Abscess Anesthesia: IV Sedation + Local Estimated blood loss: <2cc Specimen: Cultures Sent Findings: ~3-4 cm perianal abscess @ 1-3 oclock position Complications: None Drain(s): Other (1/2" packing) Transferred to: Recovery Room Condition: Good
[2019-02-14] MEDS ORDERED: FENTANYL CITR 100 MCG/2 ML ONE (10:34)
--- NOTE | 2019-02-14 11:46 | CON ---
Date of Consultation: 02/14/2019 Brief History Of Present Illness: The patient is a 28-year-old gentleman who presen ts to the hospital with complaints of a possible insect bite, he believes to the perianal area, which occurred approximately yesterday the day before. He noted increased swelling, pain and tenderness t o the area of his anus, this got progressively worse and as such, with the increased pain, he decided to come to the emergency room. Evaluation by the ER physician found that the patient had likely per ianal abscess. Past Medical History: Significant for nothing. Past Surgical History: Negative. Home Medications: None. Allergies: NO KNOWN DRUG ALLERGIES. Social History: Patient denies alcohol, recreational drug use. He smokes occasionally approximately half pack to pack per day. Physical Examination: Vital Signs: His vital signs at time of my examination were blood pressure 158/89, pulse is 78, resp iratory rate is 17, temperature 99.8. General: He is awake, alert, oriented. Psychiatric: Appropriate. Conversive. HEENT: Normocephalic . Sclerae icteric. Mucous membranes moist. Oropharynx clear. Neck: Supple. No JVD. Chest: Symmetric chest excursion. Cardiovascular: Regular rhythm. Pulmonary: Clear to auscultation bilaterally. Abdomen: Soft, nontender, nondistended. Rectal: Focused examination of the anus shows an approximately 3 to 4 cm perineal abscess at the 1 t o 3 o'clock position, not involving the anal musculature and there is no infra-anal communication. Extremities: No clubbing, cyanosis, edema. Skin: Warm, dry. Laboratory Data: Reveals a white blood cell count of 12.2, hemoglobin is 13.3, hematocrit of 41.1, p latelet count is . His sodium 144, potassium 3.9, chloride 109, carbon dioxide 30, BUN 14, creatinine 1.1, glucose is 87. He had a CT scan of the abdomen and pelvis, which was officially read as no acute intraabdominal findings. Assessment And Plan: This is a 28-year-old male, who presents with perianal abscess. 1.IV fluid hydration. 2.Antibiotic coverage. 3.I explained risks, benefits, alternatives of open incision and drainage of the perianal abscess wi th packing and ongoing wound care to the patient including but not limited to bleeding, infection, da mage to surrounding tissues, need for further operation procedures, possible tissues. The patient agrees to proceed as indicated. BEKA Voice ID: [id number] Report ID: [id number]
--- NOTE | 2019-02-14 13:11 | OP ---
Date of Procedure: 02/14/2019 Surgeon: Neil Schumacher MD, Preoperative Diagnosis: Perianal abscess. Postoperative Diagnosis: Perianal abscess. Procedure Performed: Incision and drainage of perianal abscess. Anesthesia: IV sedation plus local with 0.25% Marcaine with epinephrine. Estimated Blood Loss: Less than 2 cc. Specimen: Cultures sent. Findings: 3-4 cm perianal abscess at approximately 1 to 3 o'clock position. Complications: None. Drains: 1/4 quarter-inch iodoform packing placed. The patient remained in the ER in good condition. Procedure In Detail: After informed consent was obtained, the patient was prepped and draped in the usual sterile fashion in the emergency room and under IV conscious sedation under the care of Dr. Santizo in [facility], I anesthetized the area of the perianal abscess with 0.25% Marcaine with epinephrine. I then under sterile conditions, made an incision in the abscess, opened in its entirety. Cultures wer e sent when the abscess was encountered for both aerobic and anaerobic speciation. The abscess was o pened in its entirety and it was found to be approximately 3-4 cm in size with multi loculations cons istent with a perianal abscess. After this was completely drained, I irrigated out the wound, it is completely clear and then I packed it with quarter-inch iodoform packing and sterile dressing was santo sean on top. The patient tolerated the procedure well without evidence of complication, remained in the ER in good condition. All counts were correct at the end of the case. INO/CLARIBEL Voice ID: [id number] Report ID: [id number]
== END 2019-02-14 12:31 | disposition home or self-care (01) ==
LOC: ER 06:55
PROC: 0D9Q0ZX Drainage of Anus, Open Approach, Diagnostic (ICD-10-PCS; principal; 2019-02-14)
DX: K61.1 Rectal abscess (principal); F17.210 Nicotine dependence, cigarettes, uncomplicated
CPT/HCPCS: 36415; 74177; 80048; 85025; 87040; 87070; 87075; 87205; 96361; 96374; 96375; 99285; J2704; J3010; Q9967